=== PATIENT | female | born 1955 | race Caucasian/White ===

== ENCOUNTER → 2020-07-24 | Outpatient (CLI) | payer OTHER ==
[~2020-07-24] MED LIST: COZAAR50 MG PO; SIMVASTATIN20 MG PO
== END ==
LOC: KOH-I 10:48
DX: Z12.2 Encounter for screening for malignant neoplasm of respiratory organs (principal); F17.210 Nicotine dependence, cigarettes, uncomplicated; R91.1 Solitary pulmonary nodule
CPT/HCPCS: 71271